=== PATIENT | female | born 2000 | race Caucasian/White ===

== ENCOUNTER 2019-06-21 13:49 | Inpatient (IN) | payer OTHER ==
[~2019-06-21] VITALS: Ht 165.1 cm; Wt 68.3 kg
[2019-06-21] MEDS ORDERED: otc iron (13:55)
[2019-06-21 15:06] LABS: HEMATOCRIT 38.4 % (36.0-47.0); HEMOGLOBIN 12.7 g/dl (12.0-15.5); MEAN CORPUSCULAR HEMOGLOBIN 30.2 pg (27.0-33.0); MEAN CORPUSCULAR HGB CONC 33.1 g/dl (32.0-36.5); MEAN CORPUSCULAR VOLUME 91.4 fl (80.0-96.0); PLATELET COUNT, AUTOMATED 274 10^3/uL (150-450); WHITE BLOOD COUNT 6.2 10^3/uL (4.0-10.0)
[2019-06-21 15:22] LABS: HCG, SERUM QUALITATIVE NEGATIVE (NEGATIVE)
[2019-06-21 15:27] LABS: ACETAMINOPHEN LEVEL < 2.0 UG/ML (10.0-30.0); ALBUMIN 4.1 GM/DL (3.2-5.2); ALT/SGPT 15 U/L (12-78); BILIRUBIN,DIRECT 0.1 MG/DL (0.0-0.2); BILIRUBIN,TOTAL 0.6 MG/DL (0.2-1.0); BLOOD UREA NITROGEN 18 MG/DL (7-18); CALCIUM LEVEL 8.9 MG/DL (8.5-10.1); CARBON DIOXIDE LEVEL 29 MEQ/L (21-32); CHLORIDE LEVEL 108 MEQ/L (98-107); CREATININE FOR GFR 0.88 MG/DL (0.55-1.30); ETHYL ALCOHOL (ETHANOL) < 0.003 % (0.000-0.010); GLUCOSE, FASTING 84 MG/DL (70-100); POTASSIUM SERUM 4.1 MEQ/L (3.5-5.1); SALICYLATE LEVEL < 1.7 MG/DL (5.0-30.0); SODIUM LEVEL 141 MEQ/L (136-145); TOTAL PROTEIN 7.3 GM/DL (6.4-8.2)
[2019-06-21 16:54] LABS: AMPHETAMINES LEVEL URINE NEGATIVE (NEGATIVE); BARBITURATES URINE NEGATIVE (NEGATIVE); BENZODIAZEPINES URINE NEGATIVE (NEGATIVE); CANNABINOIDS URINE NEGATIVE (NEGATIVE); COCAINE METABOLITE URINE NEGATIVE (NEGATIVE); METHADONE URINE NEGATIVE (NEGATIVE); OPIATES URINE NEGATIVE (NEGATIVE); PHENCYCLIDINE URINE NEGATIVE (NEGATIVE)
[2019-06-21] MEDS ORDERED: MOM 30ML SUSPENSION UDC PO PRN (18:00)
[2019-06-21] MEDS ORDERED: MAALOX 30 ML SUSP *UDC PO PRN (18:00)
[2019-06-21] MEDS ORDERED: NICOTINE 21MG/24HR 1 EA TRANSDERMAL TD PRN (18:00)
[2019-06-21] MEDS ORDERED: ACETAMINOPHEN TAB 650MG DOSE (2X325MG) PO PRN (18:00)
[2019-06-21 18:10] VITALS: BP 135/78
[2019-06-21] MEDS ORDERED: FERR325T3 PO (18:25)
[2019-06-21] MEDS ORDERED: LORA-753 PO (18:25)
[2019-06-21] MEDS ORDERED: SERT25TA85 PO (18:25)
[2019-06-22 06:38] VITALS: BP 128/59
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
[2019-06-22] MEDS: FLUoxetine 10 MG CAP PO SCH (15:39)
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
[2019-06-22 16:56] VITALS: BP 115/67
[2019-06-22] MEDS: traZODone 50 MG TAB PO PRN (21:39)
[2019-06-23 06:23] VITALS: BP 145/68
[2019-06-23] MEDS: FLUoxetine 10 MG CAP PO SCH (08:34)
--- NOTE | 2019-06-23 10:12 | MHIPNPDOC ---
[facility] Progress Note Progress Note DATE OF SERVICE: 06/23/19 HISTORY: Patient is a 18 -year-old , female, who presented to the [facility] ED on 06/21/2019. Per the ED report: Pt states that she had been seen at [facility] ([facility]) on 06/10/2019 for occasional thoughts of suicide. Pt was prescribed Zoloft. Pt states that she took the Zoloft for 5 days, but began to have severe mood swings and increased thoughts of suicide. She now has a plan to commit suicide by cutting her wrists. Pt called [facility] to report this change and was advised to d/c Zoloft. She did so on 06/19/2019, but stated that her thoughts of suicide had not abated. She went to the ED as a precaution against carrying out her plan. Pt is pleasant and cooperative. Pt states that she woke up twice last night due to nightmares, but otherwise slept well. Pt states that she would like to address her increase in suicidal ideation and plan. Pt states that she had had "fleeting" suicidal thoughts in the past, but that these had been more intense since she began taking Zoloft. She stated that her plan was to cut her arms. Pt states that she has not had any thoughts of suicide today and since admitted and zoloft not ordered, and that she does not want to carry out the plan she had mentioned. Pt states that she has occasional nightmares, which is not new for her and is agreeable with starting prazosin should they continue after tonight when she takes trazodone for insomnia. Pt's short-term goal is to feel safe and not have suicidal thoughts. Pt's long-term goal is to address her depression and anxiety. Pt expressed interest in finding a different medication that would work better for her. Pt is amenable to taking 10mg Prozac to start. Risks and b enefits discussed. Pt also noted while on zoloft she started have mood-swings with strong highs and lows so she possibly has a bipolar type of depression and is encourage to see if mood swings return with the start of prozac as may need a mood stabilizing med like Abilify (risks/benefits discussed). She is not sure if bipolar disorder runs in her family but states her brother and mother have depression and take zoloft. She denies SI/HI, hallucinations, delusions. Feels safe here. VITAL SIGNS: see below NEW TEST RESULTS: see below CURRENT MEDICATIONS: See below. MENTAL STATUS EXAMINATION: General Appearance: well groomed, appears stated age, hospital scrubs/clothing Build: thin Demeanor: average, withdrawn (mild) Eye Contact: average Activity: average Behavior: cooperative Speech: clear, spontaneous, reg/rate,rhythm,volume Mood: depressed Mood "I'm a little down because I wanted to go out for Halloween." Affect: constricted, congruent, anxious Thought Process: logical/linear, depressed, intact Thought Content (Delusions): none reported, denies SI, HI, AVH Thought Content (Other): none reported, appropriate, coherent Thought Content (Aggressive): none reported Perception (Hallucinations): none reported Perception (Other): none reported Cognition (Impairment of): none reported Cognition(Intelligence Est.): average Oriented: Oriented times three Insight: fair Judgment: Fair Psychosis: Denies DIAGNOSES: Mood d/o unspecified R/O unipolar vs bipolar depression anxiety unspecified ASSESSMENT: Pt seen and states that her mood is better. States she's being social on the milieu which is beneficial. States she took her PRN Trazodone HCl last night. States she fell asleep better and only woke once. Pt states that her dreams were less vivid than usual, and that they were not nightmares, though she also states that she does not normally have nightmares every night. Pt states that she has been feeling a little restless and anxious, but does not know if the anxiety feelings are "pent up energy from being restless." Denies extreme m ood swings which she had experienced on zoloft. Feels she is tolerating her medications and they're beneficial. She is attending groups and finding them helpful, participating well. She denies SI/HI, hallucinations, delusions. Pt feels safe here. MANAGEMENT PLAN: continue plan Medications: Prozac 10mg qd. Hydroxyzine 25mg q6hr prn anxiety. Trazodone HCl 50mg qhs prn nightmares. TIME SPENT: 30 minutes. Vital Signs Vital Signs Date Time Temp Pulse Resp B/P (MAP) Pulse Ox O2 Delivery O2 Flow Rate FiO2 10/31/19 07:59 Room Air 06/23/19 06:23 98.6 79 16 145/68 (93) 06/21/19 18:10 100 Current Medications Current Medications Medications (Trade) Dose Ordered Sig/Joleen Route PRN Reason Start Time Stop Time Status Last Admin Dose Admin Acetaminophen (Tylenol Tab) 650 mg Q6HP PRN PO HEADACHE or DISCOMFORT 06/21/19 18:00 Al Hydrox/Mg Hydrox/Simethicone (Mylanta) 30 ml Q4HP PRN PO HEARTBURN/INDIGESTION 06/21/19 18:00 Fluoxetine HCl (PROzac) 10 mg DAILY PO 06/22/19 09:00 06/23/19 08:34 Home Med (Med Rec Complete!) ASDIRECTED XX 06/21/19 18:30 06/21/19 18:30 DC Magnesium Hydroxide (Milk Of Magnesia) 30 ml DAILYPRN PRN PO CONSTIPATION 06/21/19 18:00 Nicotine (Nicoderm Cq 21mg) 1 patch DAILY PRN TD Smoking Cessation 06/21/19 18:00 Trazodone HCl (Desyrel) 50 mg QHSP PRN PO INSOMNIA 06/21/19 18:00 06/22/19 21:39 Allergies Coded Allergies: No Known Allergies (Unverified , 06/21/19) ALIA SILVA DO Jun 23, 2019 10:12 am
[2019-06-23 18:00] VITALS: BP 134/62
[2019-06-23] MEDS: traZODone 50 MG TAB PO PRN (21:15)
[2019-06-24 06:57] VITALS: BP 142/67
[2019-06-24] MEDS: FLUoxetine 10 MG CAP PO SCH (08:13)
--- NOTE | 2019-06-24 11:46 | MHIPNPDOC ---
[facility] Progress Note Progress Note DATE OF SERVICE: 06/24/19 HISTORY: Patient is a 18 -year-old , female, who presented to the [facility] ED on 06/21/2019. Per the ED report: Pt states that she had been seen at [facility] ([facility]) on 06/10/2019 for occasional thoughts of suicide. Pt was prescribed Zoloft. Pt states that she took the Zoloft for 5 days, but began to have severe mood swings and increased thoughts of suicide. She now has a plan to commit suicide by cutting her wrists. Pt called [facility] to report this change and was advised to d/c Zoloft. She did so on 06/19/2019, but stated that her thoughts of suicide had not abated. She went to the ED as a precaution against carrying out her plan. Pt is pleasant and cooperative. Pt states that she woke up twice last night due to nightmares, but otherwise slept well. Pt states that she would like to address her increase in suicidal ideation and plan. Pt states that she had had "fleeting" suicidal thoughts in the past, but that these had been more intense since she began taking Zoloft. She stated that her plan was to cut her arms. Pt states that she has not had any thoughts of suicide today and since admitted and zoloft not ordered, and that she does not want to carry out the plan she had mentioned. Pt states that she has occasional nightmares, which is not new for her and is agreeable with starting prazosin should they continue after tonight when she takes trazodone for insomnia. Pt's short-term goal is to feel safe and not have suicidal thoughts. Pt's long-term goal is to address her depression and anxiety. Pt expressed interest in finding a different medication that would work better for her. Pt is amenable to taking 10mg Prozac to start. Risks and be nefits discussed. Pt also noted while on zoloft she started have mood-swings with strong highs and lows so she possibly has a bipolar type of depression and is encourage to see if mood swings return with the start of prozac as may need a mood stabilizing med like Abilify (risks/benefits discussed). She is not sure if bipolar disorder runs in her family but states her brother and mother have depression and take zoloft. She denies SI/HI, hallucinations, delusions. Feels safe here. VITAL SIGNS: see below NEW TEST RESULTS: see below CURRENT MEDICATIONS: See below. MENTAL STATUS EXAMINATION: General Appearance: well groomed, appears stated age, hospital scrubs/clothing Build: thin Demeanor: average, withdrawn (mild) Eye Contact: average Activity: average Behavior: cooperative Speech: clear, spontaneous, reg/rate,rhythm,volume Mood: depressed Mood "more depressed" Affect: constricted, congruent, anxious Thought Process: logical/linear, depressed, negative cognitive distortions, intact Thought Content (Delusions): none reported, denies SI, HI, AVH Thought Content (Other): none reported, appropriate, coherent Thought Content (Aggressive): none reported Perception (Hallucinations): none reported Perception (Other): none reported Cognition (Impairment of): none reported Cognition(Intelligence Est.): average Oriented: Oriented times three Insight: fair Judgment: Fair Psychosis: Denies DIAGNOSES: Mood d/o unspecified R/O unipolar vs bipolar depression anxiety unspecified ASSESSMENT: Pt seen and states she feels depressed today secondary to depressive thoughts of feeling like a burden to her family b/c she's here and a failure. Did some CBT with the pt and told her what it is, gave her guidelines for her to practise using CBT skills to improve her depressive thoughts. States she's being social on the milieu which is beneficial. States she took her PRN Trazodone HCl last night. States she slept well last night and denies nightmares. enies extreme mood swings which she had experienced on zoloft. Feels she is tolerating her medications and it's beneficial. Agreeable to increasing prozac to 20mg daily for on going depression. She is attending groups and finding them helpful, participating well. She denies SI/HI, hallucinations, delusions. Pt feels safe here. MANAGEMENT PLAN: continue plan. increase prozac 20mg qhs. Medications: Prozac 20mg qd. Hydroxyzine 25mg q6hr prn anxiety. Trazodone HCl 50mg qhs prn nightmares. TIME SPENT: 30 minutes. Vital Signs Vital Signs Date Time Temp Pulse Resp B/P (MAP) Pulse Ox O2 Delivery O2 Flow Rate FiO2 06/24/19 06:57 98.7 104 18 142/67 (92) 10/31/19 07:59 Room Air 06/21/19 18:10 100 Current Medications Current Medications Medications (Trade) Dose Ordered Sig/Joleen Route PRN Reason Start Time Stop Time Status Last Admin Dose Admin Acetaminophen (Tylenol Tab) 650 mg Q6HP PRN PO HEADACHE or DISCOMFORT 06/21/19 18:00 Al Hydrox/Mg Hydrox/Simethicone (Mylanta) 30 ml Q4HP PRN PO HEARTBURN/INDIGESTION 06/21/19 18:00 Fluoxetine HCl (PROzac) 10 mg DAILY PO 06/22/19 09:00 06/24/19 08:13 Home Med (Med Rec Complete!) ASDIRECTED XX 06/21/19 18:30 06/21/19 18:30 DC Hydroxyzine HCl (Atarax) 25 mg Q6HP PRN PO ANXIETY 06/23/19 10:15 Magnesium Hydroxide (Milk Of Magnesia) 30 ml DAILYPRN PRN PO CONSTIPATION 06/21/19 18:00 Nicotine (Nicoderm Cq 21mg) 1 patch DAILY PRN TD Smoking Cessation 06/21/19 18:00 Trazodone HCl (Desyrel) 50 mg QHSP PRN PO INSOMNIA 06/21/19 18:00 06/23/19 21:15 Allergies Coded Allergies: No Known Allergies (Unverified , 06/21/19) ALIA SILVA DO Jun 24, 2019 11:10
[2019-06-24] MEDS ORDERED: FLUoxetine 10 MG CAP PO ONE (12:00)
[2019-06-24 16:05] VITALS: BP 122/65
[2019-06-24] MEDS: traZODone 50 MG TAB PO PRN (20:55)
[2019-06-25 06:54] VITALS: BP 120/76
[2019-06-25] MEDS: FLUoxetine 20 MG CAP PO SCH (08:21)
[2019-06-25 16:07] VITALS: BP 130/70
--- NOTE | 2019-06-25 17:41 | MHIPNPDOC ---
[facility] Progress Note Progress Note DATE OF SERVICE: 06/25/19 HISTORY: Patient is a 18 -year-old , female, who presented to the [facility] ED on 06/21/2019 and as per he ED report: "Pt states that she had been seen at [facility] ([facility]) on 06/10/2019 for occasional thoughts of suicide. Pt was prescribed Zoloft. Pt states that she took the Zoloft for 5 days, but began to have severe mood swings and increased thoughts of suicide. She now has a plan to commit suicide by cutting her wrists. Pt called [facility] to report this change and was advised to d/c Zoloft. She did so on 06/19/2019, but stated that her thoughts of suicide had not abated. She went to the ED as a precaution against carrying out her plan." INTERVAL HISTORY: Patient was hospitalized on the . She's calm, pleasant, cooperative. She says she came to the Hospital because she was taking Zoloft and it caused suicidal thoughts but now, she has been on Prozac and she feels she's responding well to medications. She's sleeping better, she likes Trazodone for sleep but sometimes she wakes up once or twice/night. Appetite is good, she's future orientated, she wants to start College in August through [employer]. She has not been able to write poetry because she has been depressed. sometimes she feels restless, as she can't get her energy out but when she had just arrived, her energy levels were very low. Sometimes she feels like burden ( to her BF, parents or colleagues ). Sometimes feels hopeless/helpless, sometimes worthless. She had images in her head today of committing suicide but is not that she wants to think about suicide, these thoughts come into her mind in an intrusive way. VITAL SIGNS: see below NEW TEST RESULTS: see below CURRENT MEDICATIONS: See below. MENTAL STATUS EXAMINATION: General Appearance: well groomed, appears stated age, personal clothes, good hygiene Build: thin Demeanor: average, withdrawn (mild) Eye Contact: poor at times, mostly good Activity: average Behavior: cooperative Speech: clear, spontaneous, reg/rate,rhythm,volume Mood: depressed Mood "a little bit nervosus, I felt more nervous today" Affect: constricted, congruent, anxious Thought Process: logical/linear, depressed, cognitive distortions Thought Content (Delusions): none reported, denies SI, HI, AVH ( but reports to have memories of her suicidal thoughts) Thought Content (Other): none reported, appropriate, coherent Thought Content (Aggressive): none reported Perception (Hallucinations): none reported Perception (Other): none reported Cognition (Impairment of): none reported Cognition(Intelligence Est.): average Oriented: Oriented times three Insight: fair Judgment: Fair Psychosis: Denies DIAGNOSES: Mood d/o unspecified R/O unipolar vs bipolar depression anxiety unspecified ASSESSMENT: Pt. continues to feel like a burden but is less intense and less frequent than it was before (yesterday). she denies active suicidal thoughts but she admits to have memories of the thoughts/plans she had about killing hrself when she decided to come to the hospital. She says she doesn't want to think about this and she jolene by trying to think about something else. sometimes it works and sometimes she has to try harder to distract herself. MANAGEMENT PLAN: continue plan. increase prozac 20mg qhs. Medications: Prozac 20mg qd. Hydroxyzine 25mg q6hr prn anxiety. Trazodone HCl 50mg qhs prn for sleep TIME SPENT: 20 minutes. Vital Signs Vital Signs Date Time Temp Pulse Resp B/P (MAP) Pulse Ox O2 Delivery O2 Flow Rate FiO2 06/25/19 16:07 98.0 61 18 130/70 (90) 06/23/19 07:59 Room Air 06/21/19 18:10 100 Current Medications Current Medications Medications (Trade) Dose Ordered Sig/Joleen Route PRN Reason Start Time Stop Time Status Last Admin Dose Admin Acetaminophen (Tylenol Tab) 650 mg Q6HP PRN PO HEADACHE or DISCOMFORT 06/21/19 18:00 Al Hydrox/Mg Hydrox/Simethicone (Mylanta) 30 ml Q4HP PRN PO HEARTBURN/INDIGESTION 06/21/19 18:00 Fluoxetine HCl (PROzac) 10 mg DAILY PO 06/22/19 09:00 06/24/19 11:40 DC 06/24/19 08:13 Fluoxetine HCl (PROzac) 20 mg DAILY PO 06/25/19 09:00 11/2/19 08:21 Home Med (Med Rec Complete!) ASDIRECTED XX 06/21/19 18:30 06/21/19 18:30 DC Hydroxyzine HCl (Atarax) 25 mg Q6HP PRN PO ANXIETY 06/23/19 10:15 Magnesium Hydroxide (Milk Of Magnesia) 30 ml DAILYPRN PRN PO CONSTIPATION 06/21/19 18:00 Nicotine (Nicoderm Cq 21mg) 1 patch DAILY PRN TD Smoking Cessation 06/21/19 18:00 Trazodone HCl (Desyrel) 50 mg QHSP PRN PO INSOMNIA 06/21/19 18:00 06/24/19 20:55 Allergies Coded Allergies: No Known Allergies (Unverified , 06/21/19) CARLTON KATHLEEN MD Jun 25, 2019 17:41
[2019-06-25] MEDS: hydrOXYzine 25 MG TAB PO PRN (17:43)
[2019-06-25] MEDS: traZODone 50 MG TAB PO PRN (21:22)
[2019-06-26 06:36] VITALS: BP 135/71
[2019-06-26] MEDS: FLUoxetine 20 MG CAP PO SCH (08:18)
[2019-06-26] MEDS: hydrOXYzine 25 MG TAB PO PRN ×2 (09:19→20:03)
[2019-06-26 16:21] VITALS: BP 128/68
[2019-06-26] MEDS: traZODone 50 MG TAB PO PRN (21:31)
[2019-06-27 06:25] VITALS: BP 140/71
[2019-06-27] MEDS: FLUoxetine 20 MG CAP PO SCH (08:19)
--- NOTE | 2019-06-27 11:00 | MHIPNPDOC ---
[facility] Progress Note Progress Note DATE OF SERVICE: 06/27/19 HISTORY: Patient is a 18 -year-old , female, who presented to the [facility] ED on 06/21/2019. Per the ED report: Pt states that she had been seen at [facility] ([facility]) on 06/10/2019 for occasional thoughts of suicide. Pt was prescribed Zoloft. Pt states that she took the Zoloft for 5 days, but began to have severe mood swings and increased thoughts of suicide. She now has a plan to commit suicide by cutting her wrists. Pt called [facility] to report this change and was advised to d/c Zoloft. She did so on 06/19/2019, but stated that her thoughts of suicide had not abated. She went to the ED as a precaution against carrying out her plan. Pt is pleasant and cooperative. Pt states that she woke up twice last night due to nightmares, but otherwise slept well. Pt states that she would like to address her increase in suicidal ideation and plan. Pt states that she had had "fleeting" suicidal thoughts in the past, but that these had been more intense since she began taking Zoloft. She stated that her plan was to cut her arms. Pt states that she has not had any thoughts of suicide today and since admitted and zoloft not ordered, and that she does not want to carry out the plan she had mentioned. Pt states that she has occasional nightmares, which is not new for her and is agreeable with starting prazosin should they continue after tonight when she takes trazodone for insomnia. Pt's short-term goal is to feel safe and not have suicidal thoughts. Pt's long-term goal is to address her depression and anxiety. Pt expressed interest in finding a different medication that would work better for her. Pt is amenable to taking 10mg Prozac to start. Risks and be nefits discussed. Pt also noted while on zoloft she started have mood-swings with strong highs and lows so she possibly has a bipolar type of depression and is encourage to see if mood swings return with the start of prozac as may need a mood stabilizing med like Abilify (risks/benefits discussed). She is not sure if bipolar disorder runs in her family but states her brother and mother have depression and take zoloft. She denies SI/HI, hallucinations, delusions. Feels safe here. VITAL SIGNS: see below NEW TEST RESULTS: see below CURRENT MEDICATIONS: See below. MENTAL STATUS EXAMINATION: General Appearance: well groomed, appears stated age, hospital scrubs/clothing Build: thin Demeanor: average, withdrawn (mild) Eye Contact: average Activity: average Behavior: cooperative Speech: clear, spontaneous, reg/rate,rhythm,volume Mood: improved range, less depressed Mood "better" Affect: improved range, congruent, less anxious Thought Process: logical/linear,less depressed, less negative cognitive di stortions, intact Thought Content (Delusions): none reported, denies SI, HI, AVH Thought Content (Other): none reported, appropriate, coherent Thought Content (Aggressive): none reported Perception (Hallucinations): none reported Perception (Other): none reported Cognition (Impairment of): none reported Cognition(Intelligence Est.): average Oriented: Oriented times three Insight: fair Judgment: Fair Psychosis: Denies DIAGNOSES: Mood d/o unspecified R/O unipolar vs bipolar depression anxiety unspecified ASSESSMENT: Pt seen and states she feels "better" and less depressed with the increase in prozac over the weekend that she tolerating well. Endorses occasion anxiety but is finding prn vistaril beneficial for it and tolerating it well. Did some CBT with the pt and told her what it is, gave her guidelines for her to practise using CBT skills to improve her depressive thoughts last Thursday. States she's being social on the milieu which is beneficial. States she took her PRN Trazodone HCl last night and slept well with no nightmares. Denies extreme mood swings which she had experienced on zoloft. Feels she is tolerating her medications and it's beneficial. She is attending groups and finding them helpful, participating coping skills. She denies SI/HI, hallucinations, delusions. Pt feels safe here. MANAGEMENT PLAN: continue plan. d/c planning tomorrow Medications: Prozac 20mg qd. Hydroxyzine 25mg q6hr prn anxiety. Trazodone HCl 50mg qhs prn nightmares. TIME SPENT: 30 minutes. Vital Signs Vital Signs Date Time Temp Pulse Resp B/P (MAP) Pulse Ox O2 Delivery O2 Flow Rate FiO2 06/27/19 06:25 97.6 83 14 140/71 (94) 06/26/19 06:36 Room Air 06/21/19 18:10 100 Current Medications Current Medications Medications (Trade) Dose Ordered Sig/Joleen Route PRN Reason Start Time Stop Time Status Last Admin Dose Admin Acetaminophen (Tylenol Tab) 650 mg Q6HP PRN PO HEADACHE or DISCOMFORT 06/21/19 18:00 Al Hydrox/Mg Hydrox/Simethicone (Mylanta) 30 ml Q4HP PRN PO HEARTBURN/INDIGESTION 06/21/19 18:00 Fluoxetine HCl (PROzac) 10 mg DAILY PO 06/22/19 09:00 06/24/19 11:40 DC 06/24/19 08:13 Fluoxetine HCl (PROzac) 20 mg DAILY PO 06/25/19 09:00 06/27/19 08:19 Home Med (Med Rec Complete!) ASDIRECTED XX 06/21/19 18:30 06/21/19 18:30 DC Hydroxyzine HCl (Atarax) 25 mg Q6HP PRN PO ANXIETY 06/23/19 10:15 06/26/19 20:03 Magnesium Hydroxide (Milk Of Magnesia) 30 ml DAILYPRN PRN PO CONSTIPATION 06/21/19 18:00 Nicotine (Nicoderm Cq 21mg) 1 patch DAILY PRN TD Smoking Cessation 06/21/19 18:00 Trazodone HCl (Desyrel) 50 mg QHSP PRN PO INSOMNIA 06/21/19 18:00 06/26/19 21:31 Allergies Coded Allergies: No Known Allergies (Unverified , 06/21/19) ALIA SILVA DO Jun 27, 2019 11:00 am
[2019-06-27] MEDS: hydrOXYzine 25 MG TAB PO PRN (11:04)
[2019-06-27 16:21] VITALS: BP 130/77
[2019-06-27] MEDS: traZODone 50 MG TAB PO PRN (21:30)
[2019-06-28 06:16] VITALS: BP 132/74
[2019-06-28] MEDS: FLUoxetine 20 MG CAP PO SCH (08:39)
[2019-06-28] MEDS ORDERED: TRAZ-252 PO (08:54)
[2019-06-28] MEDS ORDERED: HYDR-3363 PO (08:54)
[2019-06-28] MEDS ORDERED: FLUO20CA19 PO (08:54)
--- NOTE | 2019-06-28 08:54 | MHDSPDOC ---
[facility] Discharge Summary Discharge Summary DATE OF ADMISSION: Jun 21, 2019 at 5:54 pm DATE OF DISCHARGE: May 28, 2019 DISCHARGE DIAGNOSES: Mood d/o unspecified R/O unipolar vs bipolar depression anxiety unspecified REASON FOR ADMISSION: Patient is a 18 -year-old , female, who presented to the [facility] ED on 06/21/2019. Per the ED report: Pt states that she had been seen at [facility] ([facility] on 06/10/2019 for occasional thoughts of suicide. Pt was prescribed Zoloft. Pt states that she took the Zoloft for 5 days, but began to have severe mood swings and increased thoughts of suicide. She now has a plan to commit suicide by cutting her wrists. Pt called [facility] to report this change and was advised to d/c Zoloft. She did so on 06/19/2019, but stated that her thoughts of suicide had not abated. She went to the ED as a precaution against carrying out her plan. Pt is pleasant and cooperative. Pt states that she woke up twice last night due to nightmares, but otherwise slept well. Pt states that she would like to address her increase in suicidal ideation and plan. Pt states that she had had "fleeting" suicidal thoughts in the past, but that these had been more intense since she began taking Zoloft. She stated that her plan was to cut her arms. Pt states that she has not had any thoughts of suicide today and since admitted and zoloft not ordered, and that she does not want to carry out the plan she had mentioned. Pt states that she has occasional nightmares, which is not new for her and is agreeable with starting prazosin should they continue after tonight when she takes trazodone for insomnia. Pt's short-term goal is to feel safe and not have suicidal thoughts. Pt's long-term goal is to address her depression and anxiety. Pt expressed interest in finding a different medication that would work better for her. Pt is amenable to taking 10mg Prozac to start. Risks and benefits discussed. Pt also noted while on zoloft she started have mood-swings with strong highs and lows so she possibly has a bipolar type of depression and is encourage to see if mood swings return with the start of prozac as may need a mood stabilizing med like Abilify (risks/benefits discussed). She is not sure if bipolar disorder runs in her family but states her brother and mother have depression and take zoloft. She denies SI/HI, hallucinations, delusions. Feels safe here. CONSULTANTS INVOLVED: none TREATMENT AND PROGRESS ON THE UNIT : Pt was admitted to [facility], seen for psychiatric assessment and started on prozac 20mg daily for mood and anxiety. She was provided vistaril 25mg q6hr prn anxiety and trazodone 50mg qhs prn insomnia. Pt found her medications beneficial and tolerated them well. She attended groups daily during her stay. Her symptoms improved with treatment. On day of discharge she denied depression, anxiety, insomnia, SI/HI, murphy ucinations, delusions. She was discharged home with her Holly with follow-up at [facility]. She felt safe for discharge. DISCHARGE ASSESSMENT: Pt seen and states she feels "good" and is looking forward to going home with her Holly today. She denies depressed mood as feels prozac is beneficial and she's tolerating well. Endorses occasion anxiety but is finding prn vistaril beneficial for it and tolerating it well. Did some CBT while she was on the unit with the pt and told her what it is, gave her guidelines for her to practise using CBT skills to improve her depressive thoughts which she found beneficial for improvement in her negative cognitive distortions. States she's being social on the milieu which is beneficial. States she took her PRN Trazod one HCl last night and slept well with no nightmares. Denies extreme mood swings which she had experienced on zoloft. Feels she is tolerating her medications and it's beneficial. She is attending groups and finding them helpful, participating coping skills. She denies depression, anxiety, insomnia, SI/HI, hallucinations, delusions. Pt feels safe to be discharged home today. MENTAL STATUS EXAMINATION ON DISCHARGE: General Appearance: well groomed, appears stated age, hospital scrubs/clothing Build: thin Demeanor: average Eye Contact: average Activity: average Behavior: cooperative Speech: clear, spontaneous, reg/rate,rhythm,volume Mood: euthymic, full range Mood "good" Affect: full range, congruent, euthymic Thought Process: logical/linear, intact Thought Content (Delusions): none reported, denies SI, HI, AVH Thought Content (Other): none reported, appropriate, coherent Thought Content (Aggressive): none reported Perception (Hallucinations): none reported Perception (Other): none reported Cognition (Impairment of): none reported Cognition(Intelligence Est.): average Oriented: Oriented times three Insight: good Judgment: good Psychosis: Denies MEDICATIONS ON DISCHARGE: Prozac 20mg qd. Hydroxyzine 25mg q6hr prn anxiety. Trazodone HCl 50mg qhs prn nightmares. PLAN/FOLLOWUP ARRANGEMENTS: D/c home with [facility] with follow-up at [facility]. The amount of time spent in the coordination of care for this patient was approximately 30 minutes. Vital Signs/I&Os Vital Signs Date Time Temp Pulse Resp B/P (MAP) Pulse Ox O2 Delivery O2 Flow Rate FiO2 06/28/19 06:16 97.4 80 14 132/74 (93) Room Air 06/27/19 16:21 100 Medications Scheduled Ferrous Sulfate (Ferrous Sulfate) 325 Mg Tablet.dr, 325 MG PO DAILY for ., (Reported) Loratadine (Allergy Relief) 10 Mg Tablet, 10 MG PO DAILY for ., (Reported) PT STATES SHE TAKES A SEASONAL ALLERGY MEDICATION THAT SHE DOES NOT REMEBER THE NAME OF. Sertraline Hcl (Sertraline HCl) 25 Mg Tablet, 25 MG PO DAILY for ., (Reported) Allergies Coded Allergies: No Known Allergies (Unverified , 06/21/19) ALIA SILVA DO Jun 28, 2019 8:54 am
[2019-06-28] MEDS: hydrOXYzine 25 MG TAB PO PRN (09:44)
== END 2019-06-28 12:07 | disposition home or self-care (01) | DRG 885 ==
LOC: M ED 13:49 → M ED INP 17:54 → M PSY 17:58
PROVIDERS: ADMIT Psychiatry & Neurology Psychiatry; ATTEND Psychiatry & Neurology Psychiatry
DX: F31.9 Bipolar disorder, unspecified (principal); R45.851 Suicidal ideations; F41.9 Anxiety disorder, unspecified; F39 Unspecified mood [affective] disorder; Z79.899 Other long term (current) drug therapy

== ENCOUNTER 2020-06-10 16:43 | Emergency (ER) | payer OTHER ==
[~2020-06-10] VITALS: Ht 165.1 cm; Wt 66.9 kg
[~2020-06-10 16:43] MED LIST: FERR325T3 PO; FLUO20CA22 PO; HYDR-3363 PO; LORA-753 PO; SERT25TA85 PO; TRAZ-252 PO; otc iron
[2020-06-10 16:44] VITALS: BP 141/80
[2020-06-10] MEDS ORDERED: RALTEGRAVIR 400 MG TAB (ISENTRESS) PO ONE (17:30)
[2020-06-10] MEDS ORDERED: TRUVADA 200MG/300MG TABLET PO ONE (17:30)
[2020-06-10] MEDS ORDERED: metroNIDAZOLE (FLAGYL) 500MG TABLET PO ONE (17:30)
[2020-06-10] MEDS ORDERED: LIDOCAINE 1% SDV 5ML VIAL DILUENT ONE (17:30)
[2020-06-10] MEDS ORDERED: cefTRIAXone SOD 250MG VIAL (J0696 PER 250MG) IM ONE (17:30)
[2020-06-10] MEDS ORDERED: EXPOSURE KIT-ADULT 7 DAY SUPPLY PO ONE (17:30)
[2020-06-10] MEDS ORDERED: ULIPRISTAL ACETATE 30 MG TAB (ELLA) PO ONE (17:30)
[2020-06-10] MEDS ORDERED: AZITHROMYCIN 250MG TABLET PO ONE (17:30)
[2020-06-10 17:51] LABS: BASO # 0.1 10^3/uL (0.0-0.2); BASO % 0.8 % (0.0-1.0); HEMATOCRIT 42.5 % (36.0-47.0); HEMOGLOBIN 14.2 g/dl (12.0-15.5); LYMPH # 1.9 10^3/uL (1.5-5.0); LYMPH % 22.3 % (24.0-44.0); MEAN CORPUSCULAR HEMOGLOBIN 30.5 pg (27.0-33.0); MEAN CORPUSCULAR HGB CONC 33.4 g/dl (32.0-36.5); MEAN CORPUSCULAR VOLUME 91.4 fl (80.0-96.0); MONO # 0.6 10^3/uL (0.0-0.8); MONO % 6.7 % (0.0-5.0); NEUTROPHILS # 5.8 10^3/uL (1.5-8.5); PLATELET COUNT, AUTOMATED 336 10^3/uL (150-450); RED BLOOD COUNT 4.65 10^6/uL (4.00-5.40); WHITE BLOOD COUNT 8.3 10^3/uL (4.0-10.0)
[2020-06-10 18:18] LABS: HCG, SERUM QUALITATIVE NEGATIVE (NEGATIVE)
[2020-06-10 18:22] LABS: ALBUMIN 4.3 GM/DL (3.2-5.2); ALT/SGPT 20 U/L (12-78); BILIRUBIN,TOTAL 0.8 MG/DL (0.2-1.0); BLOOD UREA NITROGEN 15 MG/DL (7-18); CALCIUM LEVEL 9.2 MG/DL (8.5-10.1); CARBON DIOXIDE LEVEL 27 MEQ/L (21-32); CHLORIDE LEVEL 108 MEQ/L (98-107); CREATININE FOR GFR 0.93 MG/DL (0.55-1.30); GLUCOSE, FASTING 90 MG/DL (70-100); SODIUM LEVEL 138 MEQ/L (136-145)
[2020-06-10] MEDS ORDERED: TRUVTAB PO (20:09)
[2020-06-10] MEDS ORDERED: RALT40TA PO (20:09)
[2020-06-10] MEDS ORDERED: ZOFR4TAB16 PO (20:10)
[2020-06-10] MEDS ORDERED: ONDANSETRON 4 MG ORAL DISINTEGRATING TAB PO ONE (22:00)
[2020-06-11] MEDS ORDERED: RALTEGRAVIR 400 MG TAB (ISENTRESS) PO SCH
[2020-06-11] MEDS ORDERED: TRUVADA 200MG/300MG TABLET PO SCH
[2020-06-11 11:28] LABS: HEPATITIS B SURFACE ANTIBODY POSITIVE (POSITIVE)
[2020-06-11 11:38] LABS: HEPATITIS B SURFACE ANTIGEN NEGATIVE (NEGATIVE)
[2020-06-11 12:06] LABS: HEPATITIS C VIRUS ABY INDEX 0.1 INDEX (<0.8)
[2020-06-11 12:07] LABS: HIV 1&2 SCREEN CENTAUR NEGATIVE (NEGATIVE)
[2020-06-27] MEDS ORDERED: MULTCAP PO (08:18)
[2020-06-27] MEDS ORDERED: LOPE1CAP5 (08:18)
[2020-06-27] MEDS ORDERED: NAPR-885 (08:18)
== END 2020-06-10 23:35 | disposition home or self-care (01) ==
LOC: M ED 16:43
DX: Z04.41 Encounter for examination and observation following alleged adult rape (principal); F60.3 Borderline personality disorder
CPT/HCPCS: 80053; 84703; 85025; 86706; 86780; 86803; 87340; 87389; 99284; J0696; Q0162

== ENCOUNTER 2020-07-04 06:07 | Day surgery (SDC) | payer OTHER ==
[~2020-07-04] VITALS: Ht 165.1 cm; Wt 68.4 kg
[~2020-07-04 06:07] MED LIST changes: +LIDOCAINE 1% MDV 20ML VIAL SQ PRN; +LOPE1CAP5; +MULTCAP PO; +NAPR-885; +RALT40TA PO; +TRUVTAB PO; +ZOFR4TAB16 PO
[2020-07-04] MEDS ORDERED: ceFAZolin SOD 2 GM in IV 1 EA IV ONE (07:00)
[2020-07-04] MEDS ORDERED: LR 1,000 ML IV ONE (07:00)
[2020-07-04] MEDS ORDERED: propofoL 200 MG/20 ML VIAL As Ordered ONE (07:10)
[2020-07-04] MEDS ORDERED: LIDOCAINE 2% 100MG/5ML SDV (FOR ANES.) As Ordered ONE (07:10)
[2020-07-04] MEDS ORDERED: ONDANSETRON 4MG/2ML VIAL As Ordered ONE (07:10)
[2020-07-04] MEDS ORDERED: dexameTHASONE 4 MG/ML 1ML VIAL (J1100 PER 1MG) As Ordered ONE ×2 (07:10→07:13)
[2020-07-04] MEDS ORDERED: MIDAZOLAM INJ 2MG/2ML VIAL (J2250 PER 1MG) As Ordered ONE (07:11)
[2020-07-04] MEDS ORDERED: fentaNYL 100 MCG/2 ML INJECTION (J3010) As Ordered ONE (07:12)
[2020-07-04] MEDS ORDERED: BUPIVACAINE HCL 0.5% 30 ML VIAL As Ordered ONE (07:13)
[2020-07-04] MEDS ORDERED: LIDOCAINE 1% SDV 30ML VIAL As Ordered ONE (07:13)
[2020-07-04] MEDS ORDERED: ONDANSETRON 4MG/2ML VIAL IV PRN (09:00)
[2020-07-04] MEDS ORDERED: LR 1,000 ML IV SCH (09:00)
[2020-07-04] MEDS ORDERED: PERCOCET 5MG/325MG TAB PO PRN (09:00)
[2020-07-04 09:05] VITALS: BP 126/59
[2020-07-04] MEDS ORDERED: KETOROLAC 60MG 2ML VIAL As Ordered ONE (09:12)
--- NOTE | 2020-07-04 10:43 | RO ---
DATE OF OPERATION: 07/04/2020 SURGEON: Jarad Aponte DPM ORCHARD PRUNER: None PREOPERATIVE DIAGNOSIS: Left foot bunion. POSTOPERATIVE DIAGNOSIS: Left foot bunion. PROCEDURE: Left foot bunionectomy and first metatarsal osteotomy. ANESTHESIA: Monitored anesthesia care. PREOPERATIVE INJECTION: 15 mL 1:1 mixture of 1% Lidocaine plain and 0.5% Marcaine plain. ESTIMATED BLOOD LOSS: Minimal. MATERIALS: Arthrex 3.5 headless compression screw, 3-0 and 4-0 Vicryl, 4-0 nylon. INJECTABLES: 1 mL Decadron 4 mg/mL. COMPLICATIONS: None. CONDITION: Stable. INDICATIONS FOR PROCEDURE: The patient is a 19-year-old female who presents to [facility] with a painful bunion. She presents today for surgical correction. The patient, side, and site were identified and marked in the preholding area. Consent was reviewed and obtained. The risks, complications, and alternatives to the procedure were explained to the patient in detail and all questions were answered. DESCRIPTION OF PROCEDURE: The patient was brought to the operating room and placed on the operating room table in the supine position. Monitored anesthesia care was delivered by the anesthesia team. Preop injection of 20 mL of 1:1 mixture of 1% Lidocaine plain and 0.5% Marcaine plain were injected into the left foot. The left foot was prepped and draped in the normal sterile fashion. A tourniquet was applied to the left ankle and inflated to 250 mmHg. A medial incision was drawn and carried through with a #15-blade. Dissection was carried out to the metatarsophalangeal joint capsule. T-capsulotomy capsulotomy was performed exposing the metatarsal head. Following this, a lateral release was performed, releasing the adductor tendon and sesamoidal ligaments. A McGlamry elevator was used to release the plantar structures. Medial eminence was then resected with a sagittal saw and osteotomy was performed of the metatarsal head and neck transposing it laterally. This was fixed with an Arthrex 3.5 headless compression screw. The remaining bone edges were resected with the sagittal saw and smooth with a rasp. It was irrigated with normal saline. Capsular repair was performed using 3-0 Vicryl, subcutaneous closure with 4-0 Vicryl, and skin closure with 4-0 nylon. One mL of Decadron was injected. Sterile dressing was applied. The tourniquet was deflated. The patient was brought to the post anesthesia care unit (PACU) with vital signs stable and neurovascular status intact. She will be partial weightbearing. She will follow- up in the office in two days. KULWINDER
== END 2020-07-04 09:55 | disposition home or self-care (01) ==
LOC: M SDC 06:07
PROVIDERS: ATTEND Podiatrist Foot & Ankle Surgery
DX: M21.612 Bunion of left foot (principal); G43.909 Migraine, unspecified, not intractable, without status migrainosus; F32.9 Major depressive disorder, single episode, unspecified; Z79.899 Other long term (current) drug therapy
CPT/HCPCS: 28296; 81025; 88300; 97116; 97530; C1713; J0690; J1100; J1885; J2250; J2405; J3010

== ENCOUNTER → 2020-09-11 | Outpatient (REF) | payer OTHER ==
[~2020-09-11] MED LIST changes: -LIDOCAINE 1% MDV 20ML VIAL SQ PRN
[2020-09-11 11:23] LABS: BASO % 0.6 % (0.0-1.0); HEMATOCRIT 39.1 % (36.0-47.0); HEMOGLOBIN 12.7 g/dl (12.0-15.5); LYMPH # 1.8 10^3/uL (1.5-5.0); LYMPH % 35.4 % (24.0-44.0); MEAN CORPUSCULAR HEMOGLOBIN 31.4 pg (27.0-33.0); MEAN CORPUSCULAR HGB CONC 32.5 g/dl (32.0-36.5); MEAN CORPUSCULAR VOLUME 96.5 fl (80.0-96.0); MONO # 0.4 10^3/uL (0.0-0.8); MONO % 7.3 % (0.0-5.0); NEUTROPHILS # 2.8 10^3/uL (1.5-8.5); NEUTROPHILS % 56.5 % (36.0-66.0); PLATELET COUNT, AUTOMATED 269 10^3/uL (150-450); RED BLOOD COUNT 4.05 10^6/uL (4.00-5.40)
[2020-09-11 12:39] LABS: HEPATITIS B SURFACE ANTIGEN NEGATIVE (NEGATIVE); HEPATITIS C VIRUS ABY INDEX < 0.0 INDEX (<0.8); HIV 1&2 SCREEN CENTAUR NEGATIVE (NEGATIVE)
== END ==
LOC: M SFHCPLAZ 08:35
PROVIDERS: ATTEND Internal Medicine Infectious Disease
DX: T74.21XA Adult sexual abuse, confirmed, initial encounter (principal)
CPT/HCPCS: 36415; 85025; 86780; 86803; 87340; 87389; G0463

== ENCOUNTER 2020-11-11 18:15 | Inpatient (IN) | payer OTHER ==
[~2020-11-11] VITALS: Ht 165.1 cm; Wt 93.8 kg
[2020-11-11] MEDS ORDERED: GABA-1171 PO (18:28)
[2020-11-11 19:32] LABS: HEMATOCRIT 39.2 % (36.0-47.0); MEAN CORPUSCULAR HEMOGLOBIN 31.4 pg (27.0-33.0); MEAN CORPUSCULAR HGB CONC 33.2 g/dl (32.0-36.5); MEAN CORPUSCULAR VOLUME 94.7 fl (80.0-96.0); PLATELET COUNT, AUTOMATED 304 10^3/uL (150-450); RED BLOOD COUNT 4.14 10^6/uL (4.00-5.40); WHITE BLOOD COUNT 7.6 10^3/uL (4.0-10.0)
[2020-11-11 19:59] LABS: HCG, SERUM QUALITATIVE NEGATIVE (NEGATIVE)
[2020-11-11 20:05] LABS: AMPHETAMINES LEVEL URINE NEGATIVE (NEGATIVE); BARBITURATES URINE NEGATIVE (NEGATIVE); BENZODIAZEPINES URINE NEGATIVE (NEGATIVE); CANNABINOIDS URINE NEGATIVE (NEGATIVE); COCAINE METABOLITE URINE NEGATIVE (NEGATIVE); METHADONE URINE NEGATIVE (NEGATIVE); OPIATES URINE NEGATIVE (NEGATIVE); PHENCYCLIDINE URINE NEGATIVE (NEGATIVE)
[2020-11-11 20:08] LABS: ACETAMINOPHEN LEVEL < 2.0 UG/ML (10.0-30.0); ALBUMIN 3.8 GM/DL (3.2-5.2); ALT/SGPT 24 U/L (12-78); BILIRUBIN,DIRECT 0.1 MG/DL (0.0-0.2); BILIRUBIN,TOTAL 0.3 MG/DL (0.2-1.0); BLOOD UREA NITROGEN 15 MG/DL (7-18); CALCIUM LEVEL 8.2 MG/DL (8.5-10.1); CARBON DIOXIDE LEVEL 29 MEQ/L (21-32); CHLORIDE LEVEL 109 MEQ/L (98-107); CREATININE FOR GFR 0.77 MG/DL (0.55-1.30); ETHYL ALCOHOL (ETHANOL) < 0.003 % (0.000-0.010); GLUCOSE, FASTING 92 MG/DL (70-100); POTASSIUM SERUM 3.8 MEQ/L (3.5-5.1); SALICYLATE LEVEL < 1.7 MG/DL (5.0-30.0); SODIUM LEVEL 143 MEQ/L (136-145); TOTAL PROTEIN 7.1 GM/DL (6.4-8.2)
[2020-11-11] MEDS ORDERED: FLUO20CA22 PO (20:28)
[2020-11-11] MEDS ORDERED: ABIL1TAB13 PO (20:28)
[2020-11-11] MEDS ORDERED: MULT-90 PO (20:28)
[2020-11-11] MEDS ORDERED: HYDR-3363 PO (20:28)
[2020-11-11] MEDS ORDERED: traZODone 50 MG TAB PO PRN (20:45)
[2020-11-11] MEDS ORDERED: MOM 30ML SUSPENSION UDC PO PRN (20:45)
[2020-11-11] MEDS ORDERED: ACETAMINOPHEN TAB 650MG DOSE (2X325MG) PO PRN (20:45)
[2020-11-11] MEDS ORDERED: MAALOX 30 ML SUSP *UDC PO PRN (20:45)
[2020-11-11 22:23] LABS: RSV AMPLIFICATION NEGATIVE (NEGATIVE)
[2020-11-12 06:51] VITALS: BP 143/69
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
[2020-11-12] MEDS ORDERED: hydrOXYzine 25 MG TAB PO PRN (16:00)
[2020-11-12 18:34] VITALS: BP 136/72
--- NOTE | 2020-11-12 19:45 | HPEPDOC ---
[facility] Medical History & Physical Date of Admission Nov 12, 2020 Date of Service: Nov 12, 2020 History and Physical CHIEF COMPLAINT: Suicidal ideation HISTORY OF PRESENT ILLNESS: 19-year-old female with history of depression and suicidality, presented to the ER after developing suicidal thoughts with plan to OD on medication for the past 2 days. She also endorses superficial self-harm with a knife to the upper thigh. These events were brought on by argument with her ex-boyfriend. Hospitalist was consulted for medical intake. Patient denies chest pain, fevers, chills, nausea, vomiting, diarrhea. She is pleasant, cooperative. Denies active suicidal ideation. PAST MEDICAL HISTORY: Depression Anxiety Childhood asthma PAST SURGICAL HISTORY: Adenoidectomy Pneumectomy Dental surgery SOCIAL HISTORY: Patient denies smoking Patient denies etoh use Patient denies illicit drug use Active FAMILY HISTORY: Alcohol use disorder in father ALLERGIES: Please see below. REVIEW OF SYSTEMS: 10 point review of systems completed relative findings are noted in the HPI HOME MEDICATIONS: Please see below. PHYSICAL EXAMINATION: VITAL SIGNS: please see below General: NAD, comfortable HEENT: PERRLA, EOMI, sclerae clear Neck: supple, normal ROM, no JVD Respiratory: lungs CTAB, no wheeze, no rales, no crackles CVS: RRR, normal S1, S2, no murmurs Abdo: soft, no masses, no hepatosplenomegaly, BS+, no rebound tenderness Extremities: no edema, pulses 2+ MSK: no joint deformities, normal ROM Neuro: no focal neuro deficits, moving all 4 extremities, CN2-12 intact. Strength 5/5 in all 4 extremities. No nystagmus. Psych: calm, cooperative, AAO x 3 LABORATORY DATA: See below. MICROBIOLOGY: Please see below. ASSESSMENT:19-year-old female with history of depression and suicidality, presented to the ER after developing suicidal thoughts with plan to OD on medication for the past 2 days. She also endorses superficial self-harm with a knife to the upper thigh. These events were brought on by argument with her ex- boyfriend. Hospitalist was consulted for medical intake. Patient denies chest pain, fevers, chills, nausea, vomiting, diarrhea. She is pleasant, cooperative. Denies active suicidal ideation . PLAN: Suicidality: Per Psych Obesity: BMI 34.4. Complicating care. Lifestyle modifications. Thank you for the consult. Please re-consult as needed. Vital Signs Vital Signs Date Time Temp Pulse Resp B/P (MAP) Pulse Ox O2 Delivery O2 Flow Rate FiO2 11/12/20 18:34 98.6 80 18 136/72 (93) 11/12/20 06:51 99 Room Air Laboratory Data Labs 24H Laboratory Tests 2 11/11/20 21:33: Coronavirus (COVID-19)(PCR) NEGATIVE, Influenza Type A (RT-PCR) NEGATIVE, Influenza Type B (RT-PCR) NEGATIVE, Respiratory Syncytial Virus (PCR) NEGATIVE Home Medications Scheduled Aripiprazole (Abilify) 2 Mg Tablet, 4 MG PO QHS Fluoxetine Hcl (Fluoxetine HCl) 20 Mg Capsule, 20 MG PO QHS Gabapentin (Gabapentin) 100 Mg Capsule, 100 MG PO QHS Multivitamin (Multivitamin) 1 Each Tablet, 1 EACH PO QHS Scheduled PRN Hydroxyzine HCl (Hydroxyzine HCl) 25 Mg Tablet, 25 MG PO BID PRN for ANXIETY Allergies Coded Allergies: No Known Allergies (Unverified , 07/04/20) A-FIB/CHADSVASC A-FIB History Current/History of A-Fib/PAF?: No Current PO Anticoag Therapy: No NATE CRUZ MD Nov 12, 2020 19:45
[2020-11-12] MEDS: GABAPENTIN 100 MG CAP PO SCH (20:13)
[2020-11-12] MEDS: FLUoxetine 20 MG CAP PO SCH (20:13)
[2020-11-12] MEDS: ARIPiprazole 2 MG TAB PO SCH (20:13)
[2020-11-13 06:39] VITALS: BP 132/66
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
[2020-11-13 16:56] VITALS: BP 131/60
[2020-11-13] MEDS: GABAPENTIN 100 MG CAP PO SCH (21:04)
[2020-11-13] MEDS: FLUoxetine 20 MG CAP PO SCH (21:04)
[2020-11-13] MEDS: ARIPiprazole 2 MG TAB PO SCH (21:05)
[2020-11-14 07:00] VITALS: BP 114/70
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
[2020-11-14 17:03] VITALS: BP 124/71
[2020-11-14] MEDS: GABAPENTIN 100 MG CAP PO SCH (20:39)
[2020-11-14] MEDS: ARIPiprazole 2 MG TAB PO SCH (20:40)
[2020-11-14] MEDS: FLUoxetine 10 MG CAP PO SCH (20:40)
[2020-11-15 06:45] VITALS: BP 113/61
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
[2020-11-15 18:27] VITALS: BP 133/68
[2020-11-15] MEDS: FLUoxetine 10 MG CAP PO SCH (20:38)
[2020-11-15] MEDS: GABAPENTIN 100 MG CAP PO SCH (20:38)
[2020-11-15] MEDS: ARIPiprazole 2 MG TAB PO SCH (20:39)
[2020-11-16 06:23] VITALS: BP 135/64
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
== END 2020-11-16 11:30 | disposition home or self-care (01) | DRG 881 ==
LOC: M ED 20:58 → M ED INP 21:15 → M OR 11-12 00:52 → M PSY 11-12 01:51
PROVIDERS: ADMIT Psychiatry & Neurology Child & Adolescent Psychiatry; ATTEND Psychiatry & Neurology Child & Adolescent Psychiatry
DX: F32.9 Major depressive disorder, single episode, unspecified (principal); R45.851 Suicidal ideations; F41.9 Anxiety disorder, unspecified; Z79.899 Other long term (current) drug therapy